=== PATIENT | male | born 1965 | race Native Hawaiian/Other Pacific Islander ===

== ENCOUNTER 2017-08-15 17:13 | Emergency (ER) | payer OTHER ==
[2017-08-15 17:39] VITALS: BP 144/78; PULSE 83; RESP 20; TEMP 98.3; O2SAT 98
[2017-08-15] MEDS ORDERED: Amoxicillin-Clav 875-125 mg Tab PO STA (18:29)
--- NOTE | 2017-08-15 18:32 | C.PDOC ---
History Of Present Illness 52 yo male w/PMHx of HTN come in for evaluation of Left earache gradually developed for past few days. Today, developed pain over left side of neck. Otherwise, pt denies high fver, chills, headache, dizziness, drooling, dysphagia , dyspnea, cough, SOB, abd. pain, V/D, back pain. Ambulate to Ed fo revaluation , not in any apparent distress. Time Seen by Provider: 08/15/17 18:01 Chief Complaint (Nursing): ENT Problem History Per: Patient Current Symptoms Are (Timing): Still Present Past Medical History Reviewed: Historical Data, Nursing Documentation, Vital Signs Vital Signs: Last Vital Signs Temp 98.3 F 08/15/17 17:36 Pulse 83 08/15/17 17:36 Resp 20 08/15/17 17:36 BP 144/78 08/15/17 17:36 Pulse Ox 98 08/15/17 20:12 - Medical History PMH: No Chronic Diseases Surgical History: No Surg Hx Family History: States: Unknown Family Hx - Social History Hx Alcohol Use: No Hx Substance Use: No - Immunization History Hx Tetanus Toxoid Vaccination: No Hx Influenza Vaccination: No Hx Pneumococcal Vaccination: No Review Of Systems ENT: Positive for: Ear Pain (left) Physical Exam - Physical Exam Appears: Well, Non-toxic, No Acute Distress Skin: Normal Color, Warm, Dry, No Rash Head: Normacephalic Eye(s): bilateral: PERRL Ear(s): Left: TM Erythema, Right: Normal Nose: No Flaring, Discharge (clear rhinorrhea B/L) Oral Mucosa: Moist, No Drooling Throat: No Erythema, No Exudate, No Drooling Neck: Trachea Midline, Supple Lymphatic: Adenopathy (Left anterior cervical, tender, no erythema) Cardiovascular: Rhythm Regular Respiratory: No Decreased Breath Sounds, No Accessory Muscle Use, No Stridor, No Wheezing Gastrointestinal/Abdominal: Soft, No Tenderness, No Distention, No Guarding Back: No CVA Tenderness Extremity: Normal ROM, No Deformity, No Swelling Neurological/Psych: Oriented x3, Normal Speech ED Course And Treatment O2 Sat by Pulse Oximetry: 98 (on RA) Pulse Ox Interpretation: Normal Progress Note: On re-evaluation, pt is awake, comfortable, not in any apparent distress. Tolerate Po well in ED. PulseOx 98% rA. ENT: exam c/w Left otitis media. uvula midline, no edema. Neck: Supple, (-) meningeal sign. Lungs: CTA B /L, Bs equal B/L. Abd:benign, (-) guarding, (-) rebound. Neurologicaly intact. Pt advised. ref. to f/u with ped in 2-3 days for re-eval. return to ED if any worsening or new changes. Disposition Counseled Patient/Family Regarding: Diagnosis, Need For Followup, Rx Given - Disposition Referrals: Chemo Leavitt MD [Staff Provider] - Disposition: HOME/ ROUTINE Disposition Time: 18:39 Condition: STABLE Additional Instructions: Take medication as prescribed Encourage fluids Follow up with PMD in 2-3 days for re-evaluation. return to ED if any worsening or new changes. Prescriptions: Amoxicillin/Clavulanate [Augmentin 875 MG-125 MG] 1 tab PO BID #14 tab Prednisone [Deltasone] 40 mg PO DAILY #6 tablet Instructions: Otitis Media (ED) Forms: [employer] (Latvian) - Clinical Impression Clinical Impression: Otitis media - PA / PATENT LAWYER / Resident Statement MD/DO has reviewed & agrees with the documentation as recorded. - Scribe Statement The provider has reviewed the documentation as recorded by the Scribe (Madison Kim) All medical record entries made by the Scribe were at my direction and personally dictated by me. I have reviewed the chart and agree that the record accurately reflects my personal performance of the history, physical exam, medical decision making, and the department course for this patient. I have also personally directed, reviewed, and agree with the discharge instructions and disposition.
[2017-08-15] MEDS ORDERED: Amoxicillin-Clav 875-125 mg Tab PO ONE (18:35)
== END 2017-08-15 19:06 | disposition home or self-care (01) ==
LOC: C.ER 17:13
DX: H66.92 Otitis media, unspecified, left ear (principal)